=== PATIENT | female | born 1955 | race American Indian/Alaskan Native ===

== ENCOUNTER 2017-07-20 10:30 | Emergency (ER) | payer OTHER ==
[2017-07-20] MEDS ORDERED: ZOFRAN ODT PO ONE (10:57)
[2017-07-20 11:29] LABS: Basophils % (Auto) 0.7 % (0.0-1.8); Hematocrit 47.2 % (30.3-42.9); Hemoglobin 15.7 gm/dl (10.1-14.3); Mean Corpuscular HGB Conc 33 % (30-34); Mean Corpuscular Hemoglobin 28 pg (28-32); Mean Corpuscular Volume 84 fl (79-97); Platelet Count 325 K/mm3 (140-440); Red Cell Distribution Width 14.2 % (13.2-15.2); White Blood Count 14.2 K/mm3 (4.5-11.0)
[2017-07-20 11:44] LABS: Anion Gap 26 mmol/L; BUN/Creatinine Ratio 13; Blood Urea Nitrogen 9 mg/dL (7-17); Calcium 9.7 mg/dL (8.4-10.2); Carbon Dioxide 18 mmol/L (22-30); Chloride 98.8 mmol/L (98-107); Glucose 153 mg/dL (65-100); Potassium 3.3 mmol/L (3.6-5.0); Sodium 139 mmol/L (137-145)
[2017-07-20 12:05] LABS: Bilirubin,Urine NEG (Negative); Blood,Urine SM (Negative); Ketones,Urine TR mg/dL (Negative); Leukocyte Esterase,Urine NEG (Negative); Mucus,Urine FEW /HPF; Nitrite,Urine NEG (Negative); Urobilinogen,Urine < 2.0 mg/dL (<2.0)
[2017-07-20 13:23] LABS: Albumin 4.8 g/dL (3.9-5); Albumin/Globulin Ratio 1.4 %; Bilirubin,Direct 0.2 mg/dL (0-0.2); Bilirubin,Indirect 0.5 mg/dL; Bilirubin,Total 0.7 mg/dL (0.1-1.2); Magnesium 1.8 mg/dL (1.7-2.3); Total Protein 8.3 g/dL (6.3-8.2)
[2017-07-20] MEDS ORDERED: NACL 0.9% 1000 ML 1,000 ML IV ONE (13:31)
[2017-07-20] MEDS ORDERED: ZOFRAN IV ONE (13:31)
[2017-07-20] MEDS ORDERED: PEPCID IV ONE (13:31)
[2017-07-20] MEDS ORDERED: DILAUDID IV ONE ×2 (13:31→18:07)
--- NOTE | 2017-07-20 14:25 | Cat Scan Report ---
CT ABDOMEN PELVIS WITH CONTRAST: HISTORY: Epigastric pain, and nausea, vomiting and diarrhea. COMPARISON: none. TECHNIQUE: Helical CT in 1.25mm intervals following IV contrast. Sagittal and coronal reconstructions. FINDINGS: Lung bases: normal. Liver: normal. Biliary system: normal. Pancreas: normal. Spleen: normal. Kidneys/ureters/bladder: normal. Adrenal glands: normal. Aorta: normal. Intestines: normal. Appendix: normal. Pelvic viscera: normal. Musculoskeletal: normal. IMPRESSION: Unremarkable CT scan of the abdomen and pelvis with contrast.
[2017-07-20] MEDS ORDERED: K-DUR PO ONE (18:07)
--- NOTE | 2017-07-20 19:00 | Emergency Department Report ---
ED N/V/D HPI - General Chief complaint: Nausea/Vomiting/Diarrhea Stated complaint: NAUSEA/VOMITING Time Seen by Provider: 07/20/17 12:28 Source: patient Mode of arrival: Stretcher Limitations: No Limitations - History of Present Illness Initial comments: 62 year old female with a past medical history of hypertension and no abdominal surgical history presents to the hospital complaining of nausea, vomiting, and diarrhea since 9 PM last night. Patient has been unable to tolerate by mouth intake. No complaints of hematemesis, melena, fever, sick contacts, recent travel, or recent antibiotic use. Patient has chronic intermittent bright red blood per rectum with bowel movement secondary to chronic hemorrhoids and reports no change. Epigastric abdominal pain rated moderate in intensity, aching , and constant. Worse with palpation. No alleviating factors reported. - Related Data Previous Rx's Medication Instructions Recorded Last Taken Type Dicyclomine [Bentyl] 20 mg PO QID #12 tablet 07/20/17 Unknown Rx Loperamide [Imodium] 2 mg PO Q2HR PRN #20 capsule 07/20/17 Unknown Rx Ondansetron [Zofran Odt] 4 mg PO Q8HR PRN #20 tab.rapdis 07/20/17 Unknown Rx Allergies Allergy/AdvReac Type Severity Reaction Status Date / Time acetaminophen [From Lortab] AdvReac Dizziness Verified 07/20/17 10:57 hydrocodone [From Lortab] AdvReac Dizziness Verified 07/20/17 10:57 ED Review of Systems ROS: Stated complaint: NAUSEA/VOMITING Other details as noted in HPI Comment: All other systems reviewed and negative Other: Constitutional: No fevers chills or weight loss Eyes: No eye pain visual changes or discharge ENT: No ear pain or throat pain Neck: Denies pain Respiratory: Denies cough wheezing shortness of breath Cardiovascular: Denies chest pain, palpitations, syncope GI: As per HPI : Denies dysuria Musculoskeletal: Denies back pain Skin: Denies rash, lesions, erythema Neurologic: Denies headache, numbness, weakness Psychiatric: Denies suicidal ideation, hallucinations ED Past Medical Hx - Past Medical History Hx Hypertension: Yes Hx Arthritis: Yes - Surgical History Past Surgical History?: No Additional Surgical History: Hemorrhoid surgery - Social History Smoking Status: Never Smoker Substance Use Type: None - Medications Home Medications: Home Medications Medication Instructions Recorded Confirmed Last Taken Type Dicyclomine [Bentyl] 20 mg PO QID #12 tablet 07/20/17 Unknown Rx Loperamide [Imodium] 2 mg PO Q2HR PRN #20 capsule 07/20/17 Unknown Rx Ondansetron [Zofran Odt] 4 mg PO Q8HR PRN #20 tab.rapdis 07/20/17 Unknown Rx ED Physical Exam - General Limitations: No Limitations - Other Other exam information: General: No limitations, patient is alert in no acute distress Head exam: Atraumatic, normocephalic Eyes exam: Normal appearance ENT: Moist mucous membrane, normal oropharynx Neck exam: Normal inspection, full range of motion, no meningismus nontender Respiratory exam: Clear to auscultation bilateral, no wheezes, rales, crackles Cardiovascular: Normal rate and rhythm, normal heart sounds Abdomen: Soft, nondistended, epigastric tenderness, no rebound or guarding Extremity: Full range of motion normal inspection no deformity Back: Normal Inspection, full range of motion, no tenderness Neurologic: Alert, oriented x3, cranial nerves intact, no motor or sensory deficit Psychiatric: normal affect, normal mood Skin: Warm, dry, intact ED Course Vital Signs 07/20/17 07/20/17 07/20/17 10:52 11:30 11:46 Temperature Pulse Rate 84 69 Respiratory 22 28 H Rate Blood Pressure 173/109 153/71 Blood Pressure [Left] O2 Sat by Pulse 97 100 100 Oximetry 07/20/17 07/20/17 07/20/17 12:00 12:16 12:30 Temperature Pulse Rate 67 71 81 Respiratory 18 16 20 Rate Blood Pressure 163/89 223/108 223/108 Blood Pressure [Left] O2 Sat by Pulse 100 100 99 Oximetry 07/20/17 07/20/17 07/20/17 12:46 13:00 13:16 Temperature Pulse Rate 73 86 65 Respiratory 22 28 H 16 Rate Blood Pressure 193/100 193/100 181/108 Blood Pressure [Left] O2 Sat by Pulse 99 92 97 Oximetry 07/20/17 07/20/17 07/20/17 13:30 14:41 14:42 Temperature Pulse Rate 77 Respiratory 21 16 Rate Blood Pressure 150/75 150/75 Blood Pressure [Left] O2 Sat by Pulse 97 100 Oximetry 11/22/17 11/22/17 11/22/17 14:45 15:00 15:16 Temperature Pulse Rate 71 68 Respiratory 17 21 Rate Blood Pressure 150/75 145/78 145/78 Blood Pressure [Left] O2 Sat by Pulse 99 98 96 Oximetry 07/20/17 07/20/17 07/20/17 15:30 15:46 16:00 Temperature Pulse Rate 68 76 74 Respiratory 22 15 15 Rate Blood Pressure 136/79 136/79 147/81 Blood Pressure [Left] O2 Sat by Pulse 97 97 96 Oximetry 07/20/17 07/20/17 07/20/17 16:16 16:30 16:46 Temperature Pulse Rate 70 70 72 Respiratory 22 24 22 Rate Blood Pressure 147/81 156/86 156/86 Blood Pressure [Left] O2 Sat by Pulse 96 98 97 Oximetry 07/20/17 07/20/17 07/20/17 17:00 17:16 17:30 Temperature Pulse Rate 71 72 77 Respiratory 19 21 14 Rate Blood Pressure 147/78 147/78 147/78 Blood Pressure [Left] O2 Sat by Pulse 98 96 98 Oximetry 07/20/17 07/20/17 07/20/17 17:46 18:08 18:44 Temperature 97.9 F Pulse Rate 75 81 Respiratory 22 18 16 Rate Blood Pressure 147/78 Blood Pressure 150/90 [Left] O2 Sat by Pulse 96 99 Oximetry - Reevaluation(s) Reevaluation #1: 07/20/17 19:00 Patient's pain improved with Dilaudid, Zofran, and normal saline. Patient also received by mouth potassium for mild hypokalemia ED Medical Decision Making - Lab Data Result diagrams: 07/20/17 11:09 07/20/17 11:09 Lab Results 07/20/17 07/20/17 07/20/17 Range/Units 11:09 11:09 11:09 WBC 14.2 H (4.5-11.0) K/mm3 RBC 5.60 H (3.65-5.03) M/mm3 Hgb 15.7 H (10.1-14.3) gm/dl Hct 47.2 H (30.3-42.9) % MCV 84 (79-97) fl MCH 28 (28-32) pg MCHC 33 (30-34) % RDW 14.2 (13.2-15.2) % Plt Count 325 (140-440) K/mm3 Lymph % (Auto) 13.7 (13.4-35.0) % [place] % (Auto) 4.4 (0.0-7.3) % Eos % (Auto) 0.0 (0.0-4.3) % Baso % (Auto) 0.7 (0.0-1.8) % Lymph # 2.0 (1.2-5.4) K/mm3 [place] # 0.6 (0.0-0.8) K/mm3 Eos # 0.0 (0.0-0.4) K/mm3 Baso # 0.1 (0.0-0.1) K/mm3 Seg Neutrophils % 81.2 H (40.0-70.0) % Seg Neutrophils # 11.6 H (1.8-7.7) K/mm3 Sodium 139 (137-145) mmol/L Potassium 3.3 L (3.6-5.0) mmol/L Chloride 98.8 (98-107) mmol/L Carbon Dioxide 18 L (22-30) mmol/L Anion Gap 26 mmol/L BUN 9 (7-17) mg/dL Creatinine 0.7 (0.7-1.2) mg/dL Estimated GFR > 60 ml/min BUN/Creatinine Ratio 13 % Glucose 153 H (65-100) mg/dL Calcium 9.7 (8.4-10.2) mg/dL Magnesium 1.80 (1.7-2.3) mg/dL Total Bilirubin 0.70 (0.1-1.2) mg/dL Direct Bilirubin 0.2 (0-0.2) mg/dL Indirect Bilirubin 0.5 mg/dL AST 18 (5-40) units/L ALT 14 (7-56) units/L Alkaline Phosphatase 118 (35-129) units/L Total Protein 8.3 H (6.3-8.2) g/dL Albumin 4.8 (3.9-5) g/dL Albumin/Globulin Ratio 1.4 % Lipase 3 L (13-60) units/L Urine Color (Yellow) Urine Turbidity (Clear) Urine pH (5.0-7.0) Ur Specific [place] (1.003-1.030) Urine Protein (Negative) mg/dL Urine Glucose (UA) (Negative) mg/dL Urine Ketones (Negative) mg/dL Urine Blood (Negative) Urine Nitrite (Negative) Urine Bilirubin (Negative) Urine Urobilinogen (<2.0) mg/dL Ur Leukocyte Esterase (Negative) Urine WBC (Auto) (0.0-6.0) /HPF Urine RBC (Auto) (0.0-6.0) /HPF U Epithel Cells (Auto) (0-13.0) /HPF Urine Mucus /HPF 07/20/17 Range/Units 11:43 WBC (4.5-11.0) K/mm3 RBC (3.65-5.03) M/mm3 Hgb (10.1-14.3) gm/dl Hct (30.3-42.9) % MCV (79-97) fl MCH (28-32) pg MCHC (30-34) % RDW (13.2-15.2) % Plt Count (140-440) K/mm3 Lymph % (Auto) (13.4-35.0) % [place] % (Auto) (0.0-7.3) % Eos % (Auto) (0.0-4.3) % Baso % (Auto) (0.0-1.8) % Lymph # (1.2-5.4) K/mm3 [place] # (0.0-0.8) K/mm3 Eos # (0.0-0.4) K/mm3 Baso # (0.0-0.1) K/mm3 Seg Neutrophils % (40.0-70.0) % Seg Neutrophils # (1.8-7.7) K/mm3 Sodium (137-145) mmol/L Potassium (3.6-5.0) mmol/L Chloride (98-107) mmol/L Carbon Dioxide (22-30) mmol/L Anion Gap mmol/L BUN (7-17) mg/dL Creatinine (0.7-1.2) mg/dL Estimated GFR ml/min BUN/Creatinine Ratio % Glucose (65-100) mg/dL Calcium (8.4-10.2) mg/dL Magnesium (1.7-2.3) mg/dL Total Bilirubin (0.1-1.2) mg/dL Direct Bilirubin (0-0.2) mg/dL Indirect Bilirubin mg/dL AST (5-40) units/L ALT (7-56) units/L Alkaline Phosphatase (35-129) units/L Total Protein (6.3-8.2) g/dL Albumin (3.9-5) g/dL Albumin/Globulin Ratio % Lipase (13-60) units/L Urine Color Yellow (Yellow) Urine Turbidity Clear (Clear) Urine pH 7.0 (5.0-7.0) Ur Specific [place] 1.014 (1.003-1.030) Urine Protein 100 mg/dl (Negative) mg/dL Urine Glucose (UA) Neg (Negative) mg/dL Urine Ketones Tr (Negative) mg/dL Urine Blood Sm (Negative) Urine Nitrite Neg (Negative) Urine Bilirubin Neg (Negative) Urine Urobilinogen < 2.0 (<2.0) mg/dL Ur Leukocyte Esterase Neg (Negative) Urine WBC (Auto) 2.0 (0.0-6.0) /HPF Urine RBC (Auto) 7.0 (0.0-6.0) /HPF U Epithel Cells (Auto) 2.0 (0-13.0) /HPF Urine Mucus Few /HPF - Radiology Data Radiology results: report reviewed CT abdomen and pelvis IV contrast: Unremarkable - Medical Decision Making Plan to discharge patient home. Mild hypokalemia treated in symptoms improved to the ED treatment. CT does not show an acute infectious or surgical abnormality. Patient will be discharged home with treatment for acute gastroenteritis - Differential Diagnosis gastric enteritis, pancreatitis, biliary colic/cholecystitis, UTI, dehydrat Critical Care Time: No Critical care attestation.: If time is entered above; I have spent that time in minutes in the direct care of this critically ill patient, excluding procedure time. ED Disposition Clinical Impression: Gastroenteritis, Hypokalemia Disposition: DC-01 TO HOME OR SELFCARE Is pt being admited?: No Does the pt Need Aspirin: No Condition: Stable Instructions: Gastroenteritis (ED), Hypokalemia (ED) Additional Instructions: Take the medications as prescribed. Return if symptoms worsen. Follow up with the primary care doctor provided or clinic provrided Prescriptions: Dicyclomine [Bentyl] 20 mg PO QID #12 tablet Loperamide [Imodium] 2 mg PO Q2HR PRN #20 capsule PRN Reason: Diarrhea Ondansetron [Zofran Odt] 4 mg PO Q8HR PRN #20 tab.rapdis PRN Reason: Nausea And Vomiting Referrals: [facility] [Provider Group] - 3-5 Days CLEMENT HUNT MD, PHD [Staff Physician] - 3-5 Days PRIMARY CARE, [Primary Care Provider] - 3-5 Days Time of Disposition: 19:08
[2017-07-20 19:19] VITALS: BP 145/88
== END 2017-07-20 19:55 | disposition home or self-care (01) ==
LOC: ED 10:30
DX: K52.9 Noninfective gastroenteritis and colitis, unspecified (principal); E87.6 Hypokalemia; I10 Essential (primary) hypertension
CPT/HCPCS: 36415; 74177; 80048; 80074; 81001; 83690; 83735; 85025; 96361; 96374; 96375; 96376; 99284; J1170; J2405; J7030; Q9967; Q0162